=== PATIENT | female | born 1950 | race Caucasian/White ===

== ENCOUNTER 2020-05-06 06:45 | Day surgery (SDC) | payer MEDICARE, BC ==
[~2020-05-06] VITALS: Ht 165.1 cm; Wt 79.4 kg
[~2020-05-06 06:45] MED LIST: ESTRADIOL2 MG PO; LIPITOR20 MG PO; RIZATRIPTAN10 MG PO; TENORMIN50 MG PO
--- NOTE | 2020-05-06 07:31 | NUR ---
STANDARDS ENGINEER INTO ROOM TO GAIN CONSENT, NOTIFIED PATIENT WOULD BE 40 MINUTES BEFORE GOING TO IMAGING. EMILIO BARRIOS INTO ROOM AND THIS NURSE REPORTED TO EMILIO THAT ATENLOL AND A ONE TIME DOSE OF ATIVAN WAS TAKEN THIS MORNING AT 0600. NO OTHER NEEDS AT THIS TIME, CALL LIGHT WITHIN REACH.
--- NOTE | 2020-05-06 10:53 | NUR ---
PT ALERT, ORIENTED AND SUPPORTED BY HER ZAHEER. ANSWERED ALL QUESTIONS ASKED, PT FEELS CONFIDENT IN CARE SHE IS RECEIVING SAH. PT REQUESTED PRAYER
--- NOTE | 2020-05-06 11:41 | NUR ---
05/06/20 Ronnie1 Suraj Currie ATTEMPTING TO REORIENT PT TO TIME AND SITUATION. SHE IS UNABLE TO ANSWER QUESTIONS YET BUT SHAKES HEAD "NO" TO PAIN
[2020-05-06] MEDS ORDERED: IBUPROFEN600 MG PO (11:49)
[2020-05-06] MEDS ORDERED: OXYCODON-ACETA1 EAC2 PO (11:50)
[2020-05-06] MEDS ORDERED: TYLENOL EXTRA500 MG PO (11:50)
--- NOTE | 2020-05-06 12:25 | NUR ---
BEDSIDE REPORT FROM ESMER ODELL, DRESSING TO LEFT AXILLARY WITH ACTICOAT IN PLACE. C/D/I. PATIENT RATING PAIN 6/10, AND SHARP. PROVIDED SNACK, NO NAUSEA VOMITTING. ADMINISTERED 1 TAB PERCOCET PER MAR. PATIENT SITTING UP IN BED, AWAKE AND ALERT. NO OTHER NEEDS AT THIS TIME.
--- NOTE | 2020-05-06 12:58 | NUR ---
PATIENT CALLS TO BE REPOSITIONED IN BED, PATIENT STATES PAIN IS 6/10 ON PAIN SCALE BUT FEELS LIKE IT'S WORSENING. PAIN IS SHARP AND PATIENT NOW REPORTS STINGING SENSATION TO LOWER PART OF LEFT BREAST. ADMINSTERED SECOND TAB OF PERCOCET FOR PAIN CONTROL PER MAR. NO OTHER NEEDS AT THIS TIME.
--- NOTE | 2020-05-06 13:30 | NUR ---
HELPED PATIENT PUT ON SUPPORTIVE PRINCESS, DRESSING C/D/I. PATIENT STATES " THAT SECOND PILL REALLY GO ON TOP OF THE PAIN" PATIENT RATES PAIN 3/10 ON PAIN SCALE AND REPORTS DULL STINGING SENSATION IN LEFT BREAST. VSS. PATIENT ABLE TO VOID, NO NAUSEA VOMITING. PROVIDED PATIENT WITH DISCHARGE INSTRUCTION, AT BEDSIDE PROVIDED INSTRUCTION TO HIM WELL. BOTH PATIENT AND VERBALIZED UNDERSTANDING. SCRIPT IN HUSBANDS HAND. PROVIDED WHEELCHAIR RIDE OUT TO FRONT, TRANSFERED TO CAR STEADY ON FEET.
--- NOTE | 2020-05-11 14:21 | OR ---
[facility] [address], [place] [address] Signed DATE OF OPERATION: 05/06/2020 SURGEON: Luan Castro MD PREOPERATIVE DIAGNOSIS: Left upper outer quadrant infiltrating ductal breast carcinoma. POSTOPERATIVE DIAGNOSES: 1. Left upper outer quadrant infiltrating ductal breast carcinoma. 2. Negative sentinel lymph node biopsy and frozen pathology. PROCEDURES PERFORMED: 1. Injection of methylene blue dye for sentinel lymph node identification. 2. Left needle localized partial mastectomy of breast cancer. 3. Left deep axillary sentinel lymph node biopsy. SURGEON: Luan Castro MD ANESTHESIA: General LMA, Jeramy Bauer, CASTING MOLDER and local 10 mL of 0.25% Marcaine with epinephrine. INDICATIONS: This 69-year-old white woman is a patient Dr. Kishan Pratt. She underwent mammography and was found to have an abnormality in the upper outer aspect of the left breast. This included microcalcifications. A diagnostic mammogram, ultrasound and ultimately core biopsy was performed by Dr. Fischer confirming infiltrating ductal carcinoma consider grade 1/3. There was no sign of lymphovascular invasion and the axilla appeared to be clinically negative. Chest x-ray is negative as well. She has no signs of COVID infection at this time and tested negative preoperatively. She is here at this time to undergo left needle localized excision and partial mastectomy of the upper outer aspect of the left breast as well as sentinel lymph node biopsy. She understands the risks of bleeding, infection, cosmetic deformity, and a plan already in place for postprocedure radiation therapy. She also understands that if the sentinel lymph nodes proved to be positive, consideration will be made for completion axillary dissection. These risks and other unforeseen risks were reviewed in detail and she understands and wished to proceed. FINDINGS: Electronically Signed By: LUAN CASTRO MD 05/11/20 1421 PATIENT NAME: JESSICA QUINTANA OPERATIVE REPORT DATE OF : 48 REPORT #: [id number] PHYSICIAN: LUAN CASTRO MD PCP: KISHAN PRATT MD REPORT IS CONFIDENTIAL AND NOT TO BE RELEASED WITHOUT AUTHORIZATION [facility] [address], [place] [address] Signed Radionuclide uptake in the left axilla showed a single lymph node and methylene blue dye identified then noted as well. Complete excision was undertaken and frozen pathology showed no sign of malignancy in the sentinel lymph node. There is no signs of adenopathy, otherwise and no significant uptake of radionuclide or blue dye lymphatics otherwise. The lesion itself was nonpalpable after all the localization with wire was required to allow for wide excision. This was excised widely and the abnormality was felt within the parenchyma of the breast and is thought to be completely excised with a clinically negative margin. The breast tissue was reapproximated in a good cosmetic fashion. DESCRIPTION OF PROCEDURE: The patient was brought to the operating room after having been received from radiology suite with the wire emanating from the lateral aspect of the left breast. Radionuclide injection for sentinel lymph node identification had been undertaken as well. After satisfactory anesthesia, 1 mL of methylene blue dye was injected in the subepidermal space in the 2 o'clock position of the left areola. Rapid arborization of lymphatics was noted. The breast and axilla were then prepared with a spray Betadine solution and draped sterilely. The C-Trak radionuclide gamma probe was applied to the chest wall, ultimately identifying the area of considered maximal uptake. A transverse incision was made in that site and electrocautery was used to divide the dermis. Using blunt dissection primarily interrogation of the axilla was undertaken. Ultimately, an area of high uptake of radionuclide was noted and multiple small blue lymphatic channels noted. These were followed to an area of a lymph node which was about a cm in size. It was not clinically suspicious. It was excised completely. A suture was passed through it and it was sent for as sentinel lymph node #1. Further interrogation of the axilla showed no sign of dominant uptake. The wound was then packed. The breast was manipulated in relation to the wire emanating from the lateral aspect of it. A curvilinear incision was made closer to the nipple then the exit site of the wire. Dissection carried through the dermis with electrocautery and the wire delivered into the wound. An Allis clamp was used to grasp the parenchyma associated with the wire and using primarily electrocautery, wide excision was undertaken. The abnormality was a bit more medial than I expected, but the wide excision was undertaken down to essentially the pectoralis. Complete excision was afforded and the specimen oriented with a short stitch superior and long stitch lateral and a double stitch in the deep margin. It appeared to be completely excised with negative margins. Some technical difficulties in radiology precluded specimen radiograph confirmation of the lesion in the excised specimen. However, I am quite confident that was well localized and completely excised. Electronically Signed By: LUAN CASTRO MD 05/11/20 1421 PATIENT NAME: EJSSICA QUINTANA OPERATIVE REPORT DATE OF : 48 REPORT #: [id number] PHYSICIAN: LUAN CASTRO MD PCP: KISHAN PRATT MD REPORT IS CONFIDENTIAL AND NOT TO BE RELEASED WITHOUT AUTHORIZATION [place] [id number] Signed Irrigation was undertaken in the wound and hemostasis confirmed with electrocautery. The parenchyma was reapproximated with interrupted 2-0 Vicryl. Skin was then closed with running subcuticular 3-0 Vicryl. Evaluation of the axilla showed no sign of bleeding or other problems. By this point, frozen pathology returned showing no evidence of metastatic disease to the sentinel lymph node. That wound was closed similarly with interrupted 2-0 Vicryl in a running subcuticular 3-0 Vicryl. Steri-Strips were then applied. Two separate silver sponge dressings were applied to the area. She was ultimately extubated and transferred to recovery room in good condition having suffered no complication. Sponge, needle, and instrument counts were reported as correct x3. MD TRUPTI Celaya/MODL /[id number] cc: MD Kishan Bowers MD Copies: JAX FISCHER MD ~ Electronically Signed By: LUAN CASTRO MD 05/11/20 1421 PATIENT NAME: LILIANJESSICA CHESTER OPERATIVE REPORT DATE OF : 48 REPORT #: [id number] PHYSICIAN: LUAN CASTRO MD PCP: KISHAN PRATT MD REPORT IS CONFIDENTIAL AND NOT TO BE RELEASED WITHOUT AUTHORIZATION
--- NOTE | 2020-05-14 15:35 | PATH ---
[facility] [address], [place] [address] Signed SPECIMEN(S): A SENTINEL LYMPH NODE #1 SPECIMEN(S): B LEFT LATERAL BREAST SPECIMEN SOURCE: A. SENTINEL LYMPH NODE #1 B. LEFT LATERAL BREAST CLINICAL HISTORY: Infiltrating ductal carcinoma, left breast. Left breast biopsy with needle localization, sentinel lymph node biopsy. FROZEN SECTION DIAGNOSIS: A. [place] lymph node #1:No evidence of malignancy in manufacturer representative section frozen. (Dr. Sifuentes, 05/06/20, 11:13 AM) Frozen section diagnoses called to Dr. Tate at 11:13 AM. FB (under the direct supervision of a pathologist) FINAL PATHOLOGIC DIAGNOSIS: A. [place] lymph node #1, left axilla, excisional biopsy: - One lymph node with no evidence of malignancy (0/1). - See comment. B. Breast, left, lumpectomy: - Tubular carcinoma with the following features: - Tumor size: 1.1 x 0.7 x 0.7 cm. - Histologic grade (Tony histologic score): - Glandular (acinar)/tubular differentiation: Score 1. - Nuclear pleomorphism: Score 1. - Mitotic rate: Score 1. - Overall grade: Grade 1 of 3 (total score 3 of 9). - Ductal carcinoma in situ (DCIS): Present, negative for extenive intraductal component (EIC). - Architectural patterns: Cribriform and micropapillary. - Nuclear grade: Intermediate. - Necrosis: Not identified. - Margins: - Invasive carcinoma margins: Uninvolved by invasive carcinoma. - Distance from closest margin: 6 mm from medial margin, 7 mm from posterior margin. - DCIS margins: Uninvolved by DCIS. - Distance from closest margin: 4 mm from medial, PATIENT NAME: JESSICA MCKEON PATHOLOGY DATE OF : 48 REPORT #: [id number] PHYSICIAN: [facility] PCP: SHAILA PRATT MD REPORT IS CONFIDENTIAL AND NOT TO BE RELEASED WITHOUT AUTHORIZATION [facility] [address], [place] [address] Signed posterior, and inferior margins. - Regional lymph nodes: Uninvolved by tumor cells. - Total number of lymph nodes examined: 1. - Number of sentinel lymph nodes examined: 1. - Treatment effect in the breast: No known pre-surgical therapy. - Lymphovascular invasion: Not identified. - Pathologic stage classification: (PTNM, AJCC 8th ed.): pT1c (sn) pN0. - Ancillary studies: Refer to previously performed breast biomarker studies ([id number], 04/14/2020) which were reported as ER positive, ND positive, HER2 negative by IHC, and Ki-67 proliferation index of 3%. - Columnar cell change and flat epithelial atypia. - Biopsy site change. - Microcalcifications associated with invasive carcinoma and DCIS. COMMENT: As part of [facility]' Quality Improvement Program, this case was reviewed by another member of our pathology staff. NAL:NRT:cml:C1NR MICROSCOPIC EXAMINATION: Histologic sections of all submitted blocks are examined by light microscopy. Immunohistochemical stains (with appropriately staining controls) were performed. Pancytokeratin (AE1/AE3) was performed on the sentinel lymph node (A1, A2) and confirms the absence of metastatic carcinoma. SMMHC and p63 demonstrate the lack of myoepithelial cells surrounding the invasive carcinoma. The areas of DCIS show loss of CK5/6 positivity and increased ER expression. These findings, together with the gross examination, support the pathologic diagnosis. GROSS DESCRIPTION: Two specimens are received in two containers, labeled "Jessica Mckeon." A. The specimen, labeled "Jessica Mckeon, sentinel lymph node #1," is received fresh for frozen section diagnosis and consists of a 2.2 x 1.2 x 0.5 cm portion of adipose tissue with a 0.9 x 0.9 x 0.6 cm possible lymph node. The lymph node is bisected and half is submitted for frozen section resubmitted as received in cassette (A1). The remainder is submitted in cassette (A2). B. The specimen, labeled "Jessica Mckeon," and designated on the requisition "left breast," is received in formalin and consists of a 32 gram oriented portion of yellow-johnson fibroadipose tissue that is PATIENT NAME: JESSICA MCKEON CHESTER PATHOLOGY DATE OF : 48 REPORT #: [id number] PHYSICIAN: [facility] PCP: SHAILA PRATT MD REPORT IS CONFIDENTIAL AND NOT TO BE RELEASED WITHOUT AUTHORIZATION [address] [address] Signed 5.6 x 4.5 x 3.9 cm and has an attached metal localization wire. A short suture identifies the superior margin, a long suture identifies the lateral margin, and a double suture identifies the deep/posterior margin. The specimen is inked as follows: Superior - blue; inferior - green; medial - red; lateral - orange; anterior - yellow; and posterior - black. The specimen is serially sectioned from [id number] into 10 slices revealing a 1.1 x 0.7 x 0.7 cm white firm stellate mass. The mass is present in slices one-three, 1.8 cm from the anterior soft tissue margin, 1.2 cm from the posterior soft tissue margin, 1.4 cm from the superior soft tissue margin, 0.9 cm from the inferior soft tissue margin, 0.2 cm from the medial soft tissue margin, and 3.4 cm from the lateral soft tissue margin. Approximately 90% of the remaining specimen is a yellow-johnson greasy adipose tissue and 10% is a white-johnson rubbery fibrous tissue. [employer] sections are submitted in seven cassettes. Cassette Summary: (B1-B2) slice one, mass to medial soft tissue resection margin, perpendicular (B3-B4) slice two, mass to superior, inferior, anterior, and posterior soft tissue resection margins, perpendicular (B5-B6) slice three, mass to superior, Inferior, anterior, and posterior soft tissue resection margins , perpendicular (B7) lateral soft tissue margin, perpendicular Cold ischemia time: Insufficient data to calculate. Approximate Formalin time: 25 hours. ADDITIONAL NOTES: Immunohistochemical and/or in situ hybridization studies were performed on this case with the appropriate positive controls that react as expected. This test was developed and its performance characteristics determined by [facility]. It has not been cleared or approved by the U.S. Food and Drug Administration. The FDA has determined that such clearance or approval is not necessary. This test is used for clinical purposes. It should not be regarded as investigational or for research. [facility] is certified under the Clinical Laboratory Improvement Amendments of 1988 (CLIA) as qualified to perform high complexity clinical laboratory testing. PERFORMING LABORATORY: PATIENT NAME: JESSICA MCKEON PATHOLOGY DATE OF : 48 REPORT #: [id number] PHYSICIAN: [facility] PCP: SHAILA PRATT MD REPORT IS CONFIDENTIAL AND NOT TO BE RELEASED WITHOUT AUTHORIZATION [facility] [address] [place] [address] Signed The technical component was performed by [facility], [address] [place] [id number] (Director Product Development: Ambar Rodriguez MD; CLIA# [id number]). [facility], [address] [address] (CLIA# [id number]). [facility], [address] [address] (CLIA# [id number]). Diagnostician: Pari Sifuentes MD Pathologist Electronically Signed 05/14/2020 Copies: ~ PATIENT NAME: JESSICA MCKEON PATHOLOGY DATE OF : 48 REPORT #: [id number] PHYSICIAN: [facility] PCP: SHAILA PRATT MD REPORT IS CONFIDENTIAL AND NOT TO BE RELEASED WITHOUT AUTHORIZATION
== END 2020-05-06 13:45 | disposition home or self-care (01) ==
LOC: OPS 06:45 → DS 06:45 → EDSTATUS 08:00 → MAM 08:00 → OPS 08:00
PROVIDERS: Surgery
PROC: 0HBU0ZZ Excision of Left Breast, Open Approach (ICD-10-PCS; principal; 2020-05-06 10:30)
PROC: 07B60ZX Excision of Left Axillary Lymphatic, Open Approach, Diagnostic (ICD-10-PCS; 2020-05-06 10:30)
DX: C50.412 Malignant neoplasm of upper-outer quadrant of left female breast (principal); I10 Essential (primary) hypertension; Z17.0 Estrogen receptor positive status [ER+]; Z79.899 Other long term (current) drug therapy; Z88.2 Allergy status to sulfonamides
CPT/HCPCS: 00404; 00406; 19281; 76098; 78195; 88307; 88341; 88342; A9541; J0690; J1100; J1644; J1885; J2001; J2405; J2704; J3010; J7121; Q9968

== ENCOUNTER 2021-02-28 13:49 | Emergency (ER) | payer MEDICARE, BC ==
[~2021-02-28] VITALS: Ht 167.6 cm; Wt 79.4 kg
[~2021-02-28 13:49] MED LIST changes: +IBUPROFEN600 MG PO; +OXYCODON-ACETA1 EAC2 PO; +TYLENOL EXTRA500 MG PO
[2021-02-28] MEDS ORDERED: ANASTROZOLE1 MG PO (14:05)
[2021-02-28] MEDS ORDERED: HYDROCODON-ACE1 EA11 PO (14:43)
[2021-02-28] MEDS ORDERED: CRUTCH1 EACH MISC (15:30)
[2021-03-02] MEDS ORDERED: B COMPLEX1 EACH PO (06:13)
[2021-03-02] MEDS ORDERED: HYDROCODON-ACE1 EA14 PO (08:15)
== END 2021-02-28 15:48 | disposition home or self-care (01) ==
LOC: ED 13:49
DX: S82.842A Displaced bimalleolar fracture of left lower leg, initial encounter for closed fracture (principal); S93.05XA Dislocation of left ankle joint, initial encounter; C50.919 Malignant neoplasm of unspecified site of unspecified female breast; Z88.2 Allergy status to sulfonamides; Z79.899 Other long term (current) drug therapy; W10.9XXA Fall (on) (from) unspecified stairs and steps, initial encounter
CPT/HCPCS: 73610; 73700; 96374; 99283-25; A9270; J3010